=== PATIENT | male | born 1985 | race Caucasian/White ===

== ENCOUNTER 2017-03-22 22:10 | Emergency (ER) | payer MEDICAID ==
[2017-03-22] MEDS ORDERED: chlordiazePOXIDE 25 MG CAP ONE (22:13)
[2017-03-22] MEDS ORDERED: chlordiazePOXIDE 25 MG CAP PO ONE (22:15)
[2017-03-22] MEDS ORDERED: CHLORDIAZEPOXIDE 25MG PREPK#6 BTL TAKEHOME ONE (22:15)
[2017-03-22 22:19] VITALS: O2SAT 96
--- NOTE | 2017-03-22 23:12 | EDPHY ---
H & P Stated Complaint: ETOH withdrawal Time Seen by Provider: 03/22/17 22:12 HPI/ROS: Chief Complaint: Alcohol withdrawal HPI: 32-year-old male with a longstanding chronic alcohol use history presenting from the [facility] with alcohol withdrawals. Patient states that he was id seen at [facility] this morning where he presented seeking help to stop drinking. Patient was sent to the [facility] where he started developing worsening tremors and withdrawal symptoms. He states he has never had an alcohol withdrawal seizure in the past. Drinks at least a L of hard alcohol a day. No recent nausea or vomiting. No falls or head injuries. No abdominal pain. No chest pain or shortness of breath. ROS: 10 point Review of Systems is negative except as noted in the HPI. PMH: Traumatic brain injury, chronic alcohol abuse Social History: No smoking, chronic heavy alcohol, occasional marijuana Family History: non-contributory Physical Exam: Gen: Awake, Alert, moderately tremulous HEENT: Nose: no rhinorrhea Eyes: PERRLA, EOMI Mouth: Moist mucosa Neck: Supple, no JVD Chest: nontender, lungs clear to auscultation Heart: S1, S2 normal, no murmur Abd: Soft, non-tender, no guarding Back: no CVA tenderness, no midline tenderness Ext: no edema, non-tender Skin: no rash Neuro: CN II-XII intact, Sensation grossly intact, Strength 5/5 in bilateral upper and lower extremities - Personal History Current Tetanus Diphtheria and Acellular Pertussis (TDAP): Yes - Medical/Surgical History Hx Asthma: No Hx Chronic Respiratory Disease: No Hx Diabetes: No Hx Cardiac Disease: No Hx Renal Disease: No Hx Cirrhosis: No Hx Alcoholism: Yes Hx HIV/AIDS: No Hx Splenectomy or Spleen Trauma: No Other PMH: ortho surgeries, depression, anxiety - Social History Smoking Status: Never smoked Constitutional: Initial Vital Signs Temperature (C) 36.7 C 03/22/17 22:16 Heart Rate 90 03/22/17 22:16 Respiratory Rate 18 03/22/17 22:16 Blood Pressure 163/77 H 03/22/17 22:16 O2 Sat (%) 96 03/22/17 22:16 O2 Delivery Mode Room Air Medical Decision Making ED Course/Re-evaluation: 32-year-old male presenting from the [facility] in alcohol withdrawal. Will give him Librium here. Will reassess his symptoms and plan for discharge back to the the [facility] with Librium prepack. - Data Points Medications Given: Discontinued Medications Chlordiazepoxide HCl (Librium) 50 mg PO EDNOW ONE Stop: 03/22/17 22:16 Last Admin: 03/22/17 22:19 Dose: 50 mg Departure - Departure Disposition: Home, Routine, Self-Care Clinical Impression: Alcohol withdrawal Condition: Good Instructions: Alcohol Withdrawal (ED), Chlordiazepoxide (By mouth) Additional Instructions: Please continue to seek help to decrease your alcohol consumption. Return to the emergency department for increasing tremors, hallucinations, seizures, or any other concerns. Referrals: NONE *PRIMARY CARE P,. [Primary Care Provider] - As per Instructions Mckenna Mcgarry MD [Medical Doctor] - As per Instructions
[2017-03-23] VITALS: BP 151/66; PULSE 79; RESP 16; TEMP 97.9
== END 2017-03-23 00:08 | disposition home or self-care (01) ==
LOC: EDUNIT#
DX: F10.239 Alcohol dependence with withdrawal, unspecified (principal)